=== PATIENT | female | born 1945 | race Caucasian/White ===

== ENCOUNTER 2021-11-25 14:39 | Inpatient (IN) | payer MEDICARE ==
[~2021-11-25] VITALS: Ht 160 cm; Wt 77.3 kg
[2021-11-25 15:39] LABS: BASOPHILS # (AUTO) 0.2 X10'3 (0-0.2); BASOPHILS % (AUTO) 1.4 % (0-1); EOSINOPHILS # (AUTO) 0.1 X10'3 (0-0.9); EOSINOPHILS % (AUTO) 0.9 % (0-6); HEMATOCRIT 45.7 % (35.0-45.0); HEMOGLOBIN 15.5 g/dl (12.0-16.0); LYMPHOCYTES % (AUTO) 27.2 % (21-51); MEAN CORPUSCULAR HEMOGLOBIN 30.8 PG (27.0-31.0); MEAN CORPUSCULAR VOLUME 90.7 FL (78-98); MEAN PLATELET VOLUME 9.6 FL (7.4-10.4); MONOCYTES # (AUTO) 0.8 X10'3 (0-0.9); MONOCYTES % (AUTO) 7.6 % (2-12); NEUTROPHILS % (AUTO) 62.9 % (42-75); PLATELET COUNT 202 X10'3 (140-440); RED BLOOD COUNT 5.04 X10'6 (4.20-5.60); WHITE BLOOD COUNT 11.1 X10'3 (4.5-11.0)
[2021-11-25 15:49] LABS: APTT 25 SECONDS (22-32)
[2021-11-25 15:52] LABS: ALANINE AMINOTRANSFERASE 25 U/L (12-78); ALBUMIN 4.4 G/DL (3.4-5.0); ALBUMIN/GLOBULIN RATIO 1.3 (1.1-1.5); ALKALINE PHOSPHATASE 92 IU/L (46-116); ANION GAP 11 (8-16); ASPARTATE AMINO TRANSFERASE 20 U/L (10-37); BILIRUBIN,TOTAL 0.8 MG/DL (0.1-1.0); BLOOD UREA NITROGEN 14 MG/DL (7-18); BUN/CREATININE RATIO 16.5 (6.6-38.0); CALCIUM 9.5 MG/DL (8.5-10.1); CHLORIDE 100 MMOL/L (99-107); CREATININE 0.85 MG/DL (0.40-0.90); GLUCOSE 212 MG/DL (70-104); SODIUM 137 MMOL/L (135-145); TOTAL CARBON DIOXIDE 26.1 MMOL/L (24-32); TOTAL PROTEIN 7.8 G/DL (6.4-8.2); eGFR 66 ML/MIN
--- NOTE | 2021-11-25 15:53 | NUR ---
PATIENT STATES SYMPTOMS STARTED YESTERDAY AFTERNOON WITH DIFFICULTY SPEAKING, HEADACHE, LEFT ARM WEAKNESS, AND FACIAL DROOP. SYMPTOMS SUBSIDED LAST NIGHT. TODAY, PATIENT IS HAVING SLIGHT HEADACHE TO FRONTAL AREA.
--- NOTE | 2021-11-25 16:35 | NUR ---
TEL[facility] CONSULT COMPLETED AT THE BEDSIDE.
[2021-11-25] MEDS ORDERED: magnesium hydroxide 30ml (MOM) UD suspension PO PRN (16:55)
[2021-11-25] MEDS ORDERED: mag hydrox/Alum hydrox/simeth 30ml oral suspension PO PRN (16:55)
[2021-11-25] MEDS: normal saline 1000ml 1,000 ML IV SCH (16:55)
[2021-11-25] MEDS ORDERED: magnesium Cl slow-release 64mg tablet PO PRN (16:55)
[2021-11-25] MEDS ORDERED: magnesium 4gm in 100ml NS 100 ML IV PRN (16:55)
[2021-11-25] MEDS ORDERED: acetaminophen 325mg tablet PO PRN (16:55)
[2021-11-25] MEDS ORDERED: potassium Cl 20 mEq SR tablet PO PRN ×2 (16:55)
[2021-11-25] MEDS ORDERED: magnesium 2GM in 50ml NS 50 ML IV PRN (16:55)
[2021-11-25] MEDS ORDERED: potassium CL 10mEq/100ml bag 100 ML IV PRN (16:55)
[2021-11-25] MEDS ORDERED: ondansetron/PF 4mg/2ml inj IV PRN (16:55)
[2021-11-25] MEDS ORDERED: METF-900 PO (17:05)
[2021-11-25] MEDS ORDERED: CHOL100024 PO (17:05)
[2021-11-25] MEDS ORDERED: IBUP-1985 PO (17:05)
[2021-11-25] MEDS ORDERED: CYAN100097 PO (17:05)
[2021-11-25] MEDS ORDERED: PRAV20TA4 PO (17:05)
[2021-11-25] MEDS ORDERED: LISI20TA28 PO (17:05)
[2021-11-25] MEDS ORDERED: HYDR-3972 PO (17:05)
[2021-11-25] MEDS ORDERED: METO-384 PO (17:05)
[2021-11-25] MEDS ORDERED: MONT-40 PO (17:05)
[2021-11-25] MEDS ORDERED: LEVO125T PO (17:05)
[2021-11-25] MEDS ORDERED: GLIM2TAB6 PO (17:05)
[2021-11-25] MEDS ORDERED: SITA100T11 PO (17:05)
[2021-11-25 17:19] LABS: CHOL/HDL RATIO 3.1 (0.00-4.99); CHOLESTEROL 167 MG/DL (0-200); HDL CHOLESTEROL 54 MG/DL (35-60); LDL CHOLESTEROL 84 MG/DL (50-100); MAGNESIUM 1.3 MG/DL (1.5-2.4); TRIGLYCERIDES 199 MG/DL (20-135)
[2021-11-25] MEDS ORDERED: HYDROcodone/acetaminophen 10/325mg tab PO PRN (18:20)
[2021-11-25] MEDS ORDERED: ibuprofen 200mg tablet PO PRN (18:20)
[2021-11-25] MEDS: K and/or MAG REPLACEMENT MC SCH (20:00)
[2021-11-25] MEDS: docusate sod 100mg capsule PO SCH (20:00)
[2021-11-25 20:41] LABS: HEMOGLOBIN A1C 8.4 % (4.5-6.2)
[2021-11-25] MEDS ORDERED: montelukast 10mg tablet PO SCH (21:00)
[2021-11-25 22:00] VITALS: BP 161/66
[2021-11-26] MEDS: normal saline 1000ml 1,000 ML IV SCH ×2 (02:55→16:31)
[2021-11-26 06:00] VITALS: BP 169/70
[2021-11-26 07:18] LABS: EOSINOPHILS # (AUTO) 0.1 X10'3 (0-0.9); MEAN CORPUSCULAR VOLUME 90.5 FL (78-98); MONOCYTES # (AUTO) 0.7 X10'3 (0-0.9); PLATELET COUNT 182 X10'3 (140-440)
[2021-11-26 07:20] LABS: BASOPHILS # (AUTO) 0.1 X10'3 (0-0.2); BASOPHILS % (AUTO) 0.8 % (0-1); EOSINOPHILS % (AUTO) 1.5 % (0-6); HEMOGLOBIN 13.4 g/dl (12.0-16.0); LYMPHOCYTES # (AUTO) 2.4 X10'3 (1.1-4.8); LYMPHOCYTES % (AUTO) 34.3 % (21-51); MEAN CORPUSCULAR HEMOGLOBIN 30.9 PG (27.0-31.0); MEAN CORPUSCULAR HGB CONC 34.2 g/dL (33.0-36.5); MEAN PLATELET VOLUME 9.7 FL (7.4-10.4); MONOCYTES % (AUTO) 9.7 % (2-12); NEUTROPHILS # (AUTO) 3.8 X10'3 (1.8-7.7); NEUTROPHILS % (AUTO) 53.7 % (42-75); RED BLOOD COUNT 4.31 X10'6 (4.20-5.60); RED CELL DISTRIBUTION WIDTH 12.3 % (11.5-14.5)
--- NOTE | 2021-11-26 07:20 | NUR ---
Patient in room ORTHO 4015. I have received report from ARELY Lorenzo and had the opportunity to ask questions and assume patient care.
[2021-11-26 07:47] LABS: ALBUMIN 3.5 G/DL (3.4-5.0); ANION GAP 10 (8-16); BLOOD UREA NITROGEN 12 MG/DL (7-18); BUN/CREATININE RATIO 16.7 (6.6-38.0); CALCIUM 8.8 MG/DL (8.5-10.1); CHLORIDE 104 MMOL/L (99-107); CREATININE 0.72 MG/DL (0.40-0.90); GLUCOSE 241 MG/DL (70-104); POTASSIUM 3.8 MMOL/L (3.5-5.1); SODIUM 138 MMOL/L (135-145); TOTAL CARBON DIOXIDE 24.4 MMOL/L (24-32); eGFR 79 ML/MIN
[2021-11-26] MEDS ORDERED: metoprolol succinate 25mg (24-HOUR) SR. Tablet PO SCH (08:00)
[2021-11-26] MEDS: docusate sod 100mg capsule PO SCH ×2 (08:00→09:38)
[2021-11-26] MEDS ORDERED: atorvastatin 10mg tablet PO SCH (08:00)
[2021-11-26] MEDS ORDERED: lisinopril 20mg tablet PO SCH (08:00)
[2021-11-26] MEDS: K and/or MAG REPLACEMENT MC SCH (08:00)
[2021-11-26] MEDS ORDERED: glimepiride 1 MG tablet PO SCH (08:00)
[2021-11-26] MEDS: enoxaparin 40mg/0.4ml syringe SUBCUT SCH ×2 (08:00→09:46)
--- NOTE | 2021-11-26 09:13 | NUR ---
Diabetes consult: Noted pt w/ hx of DM A1c 8.4. Provided pt w/ written and verbal DM ed w/ RD contact info Addendum: 11/26/21 at [address] Amended: Links added.
[2021-11-26] MEDS: levoTHYROXINE 125mcg tablet PO SCH ×2 (09:32→10:17)
[2021-11-26] MEDS: aspirin 325mg tablet, delayed-release (Ecotrin) PO SCH ×2 (09:35→10:16)
[2021-11-26] MEDS: metFORMIN 500mg tablet PO SCH ×3 (09:36→17:37)
[2021-11-26] MEDS ORDERED: cyanocobalamin 500mcg tablet PO SCH (09:46)
[2021-11-26] MEDS ORDERED: linagliptin 5mg tablet PO SCH (09:54)
[2021-11-26 10:00] VITALS: BP 170/65
--- NOTE | 2021-11-26 10:04 | NUR ---
PAGER ID: [phone] MESSAGE: Yany [id number] Room 4015A HR 58 BP 173/65 Do you want to give the Lisinopril and Metoprolol. Thank you.
--- NOTE | 2021-11-26 11:44 | NUR ---
PAGER ID: [phone] MESSAGE: Yany 5430 [address] [place] room 4015A 267. Would you like to order the hyperglycemia protocol. Thank you.
[2021-11-26 14:00] VITALS: BP 99/81
--- NOTE | 2021-11-26 14:46 | NUR ---
PAGER ID: [phone] MESSAGE: Yany 5430 [address] [place] room 4015A head MRI is resulted.
--- NOTE | 2021-11-26 15:42 | NUR ---
PAGER ID: [phone] MESSAGE: Yany [id number] [address] [place] room 4016G both MRI and MRA are resulted. Thank you.
[2021-11-26 18:00] VITALS: BP 155/58
[2021-11-26] MEDS ORDERED: ASPI81TA52 PO (18:43)
--- NOTE | 2021-11-26 18:46 | NUR ---
Problems reprioritized. Patient report given, questions answered & plan of care reviewed with ARELY Boggs.
== END 2021-11-26 20:15 | disposition home or self-care (01) | DRG 69 ==
LOC: ER 14:39 → ED HOLD 16:57 → ORTHO 4S 22:10
PROVIDERS: ADMIT Family Medicine; ATTEND Family Medicine
DX: G45.9 Transient cerebral ischemic attack, unspecified (principal); F17.210 Nicotine dependence, cigarettes, uncomplicated; R47.81 Slurred speech; I10 Essential (primary) hypertension; Z60.2 Problems related to living alone; E78.5 Hyperlipidemia, unspecified; E11.9 Type 2 diabetes mellitus without complications; E03.9 Hypothyroidism, unspecified; Z88.2 Allergy status to sulfonamides
CPT/HCPCS: 36415; 70450; 70544; 70551; 71045; 80048; 80053; 80061; 82948; 83036; 83735; 84484; 85025; 85610; 85730; 87081; 92508; 92616; 93005; 93306; 93880; 97116; 97161; 97530; 99285; G0378; J1650; J7030

== ENCOUNTER 2022-03-04 21:28 | Emergency (ER) | payer MEDICARE ==
[~2022-03-04] VITALS: Ht 157.5 cm; Wt 77.3 kg
[~2022-03-04 21:28] MED LIST: CHOL100024 PO; CYAN100097 PO; GLIM2TAB6 PO; HYDR-3972 PO; IBUP-1985 PO; LEVO125T PO; LISI20TA28 PO; METF-900 PO; METO-384 PO; MONT-40 PO; PRAV20TA4 PO; SITA100T11 PO
[2022-03-04 21:47] VITALS: BP 165/85
[2022-03-04 22:51] LABS: BASOPHILS # (AUTO) 0.1 X10'3 (0-0.2); BASOPHILS % (AUTO) 1.2 % (0-1); EOSINOPHILS # (AUTO) 0.1 X10'3 (0-0.9); EOSINOPHILS % (AUTO) 1.4 % (0-6); HEMOGLOBIN 13.2 g/dl (12.0-16.0); LYMPHOCYTES % (AUTO) 33.3 % (21-51); MEAN CORPUSCULAR HEMOGLOBIN 31.4 PG (27.0-31.0); MEAN CORPUSCULAR HGB CONC 34.8 g/dL (33.0-36.5); MEAN CORPUSCULAR VOLUME 90.1 FL (78-98); MEAN PLATELET VOLUME 9.8 FL (7.4-10.4); MONOCYTES # (AUTO) 0.9 X10'3 (0-0.9); MONOCYTES % (AUTO) 10.1 % (2-12); NEUTROPHILS # (AUTO) 4.9 X10'3 (1.8-7.7); PLATELET COUNT 174 X10'3 (140-440); RED BLOOD COUNT 4.21 X10'6 (4.20-5.60); RED CELL DISTRIBUTION WIDTH 12.9 % (11.5-14.5)
[2022-03-04 23:04] LABS: APTT 24 SECONDS (22-32)
[2022-03-04 23:10] LABS: ALANINE AMINOTRANSFERASE 19 U/L (12-78); ALBUMIN 3.6 G/DL (3.4-5.0); ALBUMIN/GLOBULIN RATIO 1.1 (1.1-1.5); ALKALINE PHOSPHATASE 77 IU/L (46-116); ANION GAP 10 (8-16); ASPARTATE AMINO TRANSFERASE 11 U/L (10-37); BILIRUBIN,TOTAL 0.4 MG/DL (0.1-1.0); BLOOD UREA NITROGEN 16 MG/DL (7-18); BUN/CREATININE RATIO 18.6 (6.6-38.0); CALCIUM 9.1 MG/DL (8.5-10.1); CHLORIDE 105 MMOL/L (99-107); CREATININE 0.86 MG/DL (0.40-0.90); GLUCOSE 165 MG/DL (70-104); POTASSIUM 3.7 MMOL/L (3.5-5.1); SODIUM 139 MMOL/L (135-145); TOTAL CARBON DIOXIDE 23.8 MMOL/L (24-32); eGFR 65 ML/MIN
[2022-03-04] MEDS ORDERED: acetaminophen 325mg tablet PO ONE (23:45)
[2022-03-05] MEDS ORDERED: iohexol 350MG/ML 100ml bottle IV ONE (01:31)
[2022-03-05] MEDS ORDERED: MESSAGE TO NURSING PO NR (02:00)
[2022-03-05] MEDS ORDERED: SUMAtriptan succ. 6 MG/0.5ml vial SQ ONE (03:40)
== END 2022-03-05 04:23 | disposition left against medical advice (07) ==
LOC: ER 21:29
DX: G43.909 Migraine, unspecified, not intractable, without status migrainosus (principal); I63.9 Cerebral infarction, unspecified; Z88.2 Allergy status to sulfonamides; I10 Essential (primary) hypertension; E11.9 Type 2 diabetes mellitus without complications; E03.9 Hypothyroidism, unspecified
CPT/HCPCS: 36415; 70450; 70496; 70498; 71045; 80053; 85025; 85610; 85730; 93005; 99285; J3030; J3490; Q9967

== ENCOUNTER 2023-11-25 20:40 | Emergency (ER) | payer MEDICARE ==
[~2023-11-25] VITALS: Ht 157.5 cm; Wt 79.5 kg
[2023-11-25 20:47] VITALS: BP 165/66; PULSE 59; RESP 17; TEMP 98.2; O2SAT 97
== END 2023-11-25 22:21 | disposition home or self-care (01) ==
LOC: ER 20:41
DX: S91.201A Unspecified open wound of right great toe with damage to nail, initial encounter (principal); Z86.73 Personal history of transient ischemic attack (TIA), and cerebral infarction without residual deficits; G43.909 Migraine, unspecified, not intractable, without status migrainosus; I10 Essential (primary) hypertension; E11.9 Type 2 diabetes mellitus without complications; E03.9 Hypothyroidism, unspecified; W18.40XA Slipping, tripping and stumbling without falling, unspecified, initial encounter; Z88.2 Allergy status to sulfonamides; Y93.89 Activity, other specified; Y92.89 Other specified places as the place of occurrence of the external cause; Y99.8 Other external cause status
CPT/HCPCS: 73620; 99283

== ENCOUNTER 2024-11-27 08:46 | Day surgery (SDC) | payer MEDICARE, MEDICAID ==
[2024-11-15 14:41] LABS: BASOPHILS # (AUTO) 0.1 X10'3 (0-0.2); BASOPHILS % (AUTO) 0.6 % (0-1); EOSINOPHILS # (AUTO) 0.1 X10'3 (0-0.9); EOSINOPHILS % (AUTO) 1.2 % (0-6); LYMPHOCYTES # (AUTO) 2.9 X10'3 (1.1-4.8); LYMPHOCYTES % (AUTO) 30.4 % (21-51); MEAN CORPUSCULAR HEMOGLOBIN 30.8 PG (27.0-31.0); MEAN CORPUSCULAR HGB CONC 33.8 g/dL (33.0-36.5); MEAN CORPUSCULAR VOLUME 91.1 FL (78-98); MONOCYTES # (AUTO) 0.9 X10'3 (0-0.9); NEUTROPHILS # (AUTO) 5.6 X10'3 (1.8-7.7); NEUTROPHILS % (AUTO) 58.8 % (42-75); PRE OP HEMATOCRIT 39.8 % (35.0-45.0); PRE OP HEMOGLOBIN 13.5 g/dL (12.0-16.0); PRE OP PLATELET COUNT 173 X10'3 (140-440); PRE OP WHITE BLOOD COUNT 9.6 10'3 (4.8-10.8); RED BLOOD COUNT 4.37 X10'6 (4.20-5.60); RED CELL DISTRIBUTION WIDTH 13.4 % (11.5-14.5)
[2024-11-15 14:59] LABS: ALBUMIN 3.8 G/DL (3.4-5.0); ALBUMIN/GLOBULIN RATIO 1.2 (1.1-1.5); ALKALINE PHOSPHATASE 86 IU/L (46-116); BLOOD UREA NITROGEN 18 MG/DL (7-18); BUN/CREATININE RATIO 22.5 (10.0-20.0); CALCIUM 9.2 MG/DL (8.5-10.1); CHLORIDE 102 MMOL/L (99-107); PRE OP ALT 30 U/L (30-65); PRE OP ANION GAP 8 (8-16); PRE OP AST 18 U/L (10-37); PRE OP BILIRUB, TOTAL 0.8 MG/DL (0.0-1.0); PRE OP GLUCOSE 136 MG/DL (70-104); PRE OP SODIUM 137 MMOL/L (135-145); TOTAL CARBON DIOXIDE 26.9 MMOL/L (24-32); TOTAL PROTEIN 7.1 G/DL (6.4-8.2); eGFR 70 ML/MIN
[~2024-11-27] VITALS: Ht 157.5 cm; Wt 76.2 kg
[2024-11-27] MEDS: DOCUMENT DATE & TIME OF BETA-BLOCKER PO ONE (05:30)
[2024-11-27] MEDS: ceFAZolin 2gm in dextrose, iso 50 ML IV ONE (05:30)
[~2024-11-27 08:46] MED LIST changes: +AMLO-511 PO; +APIX5TAB3 PO; +ATOR40TA71 PO; +FURO20TA4 PO; -GLIM2TAB6 PO; -HYDR-3972 PO; +HYDR-3973 PO; -IBUP-1985 PO; +LANTUS SQ; +LIDOcaine 1% 30ml preserv. free vial ONE; -LISI20TA28 PO; -METO-384 PO; +NITR0.4T48 SL; -PRAV20TA4 PO; +SOTA80TA73 PO
[2024-11-27 09:34] VITALS: BP 97/76; PULSE 58; RESP 16; TEMP 97.8; O2SAT 99
[2024-11-27] MEDS: famotidine 20mg tablet PO ONE (10:28)
[2024-11-27] MEDS: ringers solution, lacted 1,000 ML IV SCH (10:30)
[2024-11-27] MEDS ORDERED: LIDOcaine 2% (20mg/ml) 5ml vial ONE (11:42)
[2024-11-27] MEDS ORDERED: BUPIVAcaine/PF 2.5mg/ml (0.25%) 10ml vial ONE (11:42)
[2024-11-27] MEDS ORDERED: proCHLORperazine 10 MG/2 ml inj IV PRN (12:00)
[2024-11-27] MEDS ORDERED: meperidine/PF 25mg/ml syringe IV PRN ×3 (12:00)
[2024-11-27] MEDS ORDERED: ringers solution, lacted 1,000 ML IV SCH (12:00)
[2024-11-27] MEDS ORDERED: ondansetron/PF 4mg/2ml inj IV PRN (12:00)
[2024-11-27] MEDS ORDERED: enalaprilat 1.25mg/ml 2ml vial IV PRN (12:00)
[2024-11-27] MEDS ORDERED: labetalol 20mg/4ml (5mg/ml) syringe IV PRN (12:00)
[2024-11-27] MEDS ORDERED: fentaNYL/PF 50MCG/1 ML 2ML syringe ONE (12:13)
[2024-11-27] MEDS ORDERED: midazolam 1 mg/ML 2ml injection ONE (12:13)
[2024-11-27] MEDS ORDERED: acetaminophen 1,000mg/100ml IV 100 ML IV ONE (12:26)
[2024-11-27 12:30] VITALS: BP 140/54; PULSE 68; RESP 14; O2SAT 96
[2024-11-27 12:40] VITALS: BP 135/59; PULSE 57; RESP 13; O2SAT 97
[2024-11-27 12:50] VITALS: BP 153/62; PULSE 64; RESP 16; O2SAT 97
[2024-11-27 13:00] VITALS: BP 167/79; PULSE 50; RESP 12; O2SAT 97
[2024-11-27 13:10] VITALS: BP 171/78; PULSE 52; RESP 15; O2SAT 97
== END 2024-11-27 13:30 | disposition home or self-care (01) ==
LOC: PAS 08:46
PROVIDERS: ATTEND Orthopaedic Surgery Hand Surgery
DX: G56.01 Carpal tunnel syndrome, right upper limb (principal); I10 Essential (primary) hypertension; E11.9 Type 2 diabetes mellitus without complications; E03.9 Hypothyroidism, unspecified; I25.2 Old myocardial infarction; M17.11 Unilateral primary osteoarthritis, right knee; M81.0 Age-related osteoporosis without current pathological fracture; E78.5 Hyperlipidemia, unspecified; Z98.890 Other specified postprocedural states; Z88.2 Allergy status to sulfonamides; Z88.6 Allergy status to analgesic agent; Z86.73 Personal history of transient ischemic attack (TIA), and cerebral infarction without residual deficits; Z85.3 Personal history of malignant neoplasm of breast; Z96.653 Presence of artificial knee joint, bilateral; Z82.49 Family history of ischemic heart disease and other diseases of the circulatory system; Z80.8 Family history of malignant neoplasm of other organs or systems; F17.210 Nicotine dependence, cigarettes, uncomplicated
CPT/HCPCS: 36415; 64721; 80053; 82948; 85025; 93005; A4215; A6449; J0131; J0690; J2003; J2250; J3010; J3490; J7030; J7120; Z7506; Z7512; Z7610